=== PATIENT | female | born 1960 | race Caucasian/White ===

== ENCOUNTER 2024-05-02 13:45 | Emergency (ER) | payer OTHER, SELFPAY ==
[2024-05-02 13:47] VITALS: BP 142/87
--- NOTE | 2024-05-02 15:16 | ED.GENMED ---
History of Present Illness
General
Chief Complaint: Extremity Pain (non-traumatic)
Source: patient
Exam Limitations: none
Time Seen by Provider: 05/02/24 14:39
History of Present Illness
History of Present Illness:
63-year-old female who presents with pain in the left hand/fingers. she was recently casted by orthopedics for a wrist fracture. pt states that if feels too tight. no fevers.
Past History
Past History
ED Past Medical History: NIDDM and Psychiatric
ED Past Surgical History: Cholecystectomy and Orthopedic
Phy Exam
Physical Exam
Physical Exam:
CONSTITUTIONAL Vital signs reviewed, Patient alert and oriented to person, place and time. Well-appearing
HEAD atraumatic, normocephalic.
EYES eyelids normal to inspection, Extraocular muscles intact, Conjunctiva normal, Sclera normal.
NECK normal range of motion, Trachea midline, no jugular venous distention.
RESP no respiratory distress
UPPER EXTREMITY L arm short case. nl distal cap refill. nl gross sensation. no swelling. no cyanosis. Gross Range of motion normal of fingers, gross motor strength normal.
LOWER EXTREMITY Gross range of motion normal, Gross motor strength normal
NEURO Speech normal, No focal motor deficits include, Gala coma scale 15, Memory normal, Cranial Nerves intact to screening exam.
SKIN Skin warm, dry, and normal in color.
PSYCHIATRIC Patient oriented to person place and time, Normal affect.
Course
Vital Signs
Initial and Last Documented VS:
Initial Vital Signs
Temp Pulse Resp BP Pulse Ox
98.6 F 88 18 142/87 100
05/02/24 13:47 05/02/24 13:47 05/02/24 13:47 05/02/24 13:47 05/02/24 13:47
Last Documented Vital Signs
Temp Pulse Resp BP Pulse Ox
98.6 F 88 18 142/87 100
05/02/24 13:47 05/02/24 13:47 05/02/24 13:47 05/02/24 13:47 05/02/24 13:47
MDM/Problems Addressed
MDM/Problems Addressed:
tight cast, arm pain
*Pulse Oximetry
Patient hypoxic: no
*Critical Care Note
Total Time (30-74mins, 75-104mins- exclusive of procedures): Not Applicable
Data Reviewed
Source: patient
Further Testing Considered But Not Given:
considered xray but no new trauma
Patient Management
Escalation/DeEscalation of care consider admission/obs:
Normal distal perfusion. No redness. No fever to suggest infection. The cast was cut on both sides and valved. Candido wrap placed with pledget to keep the bowel movement. Recommended close outpatient orthopedic follow-up
ED Attending Note
-
Portions of this chart may have been created with voice recognition software.� Occasional wrong word or��sound alike� substitutions may have occurred due to the inherent limitations of voice recognition software.
Discharge Plan
Departure
Patient Disposition: Home (Routine Discharge)
Date of Disposition: 05/02/24
Time of Disposition: 15:21
Patient with high blood pressure during this ER visit?: Yes
Discharge Problem:
Arm pain
Instructions: BLOOD PRESSURE
Referrals:
Mary Jo Oh MD [Family Provider] -
Activity Restrictions/Additional Instructions:
Please see orthopedics next 3 days for follow-up and reevaluation and to readdress your cast. Return [facility] for numbness, tingling, worsening pain, fevers, discoloration or swelling of the hand or any other concerns
Interventions
Interventions:
*Risk Screen - Suicide Last Done: 05/02/24 13:47
*General Assessment Last Done: 05/02/24 13:47
*Neglect/Abuse Screening Last Done: 05/02/24 13:47
Discharge Date and Time
Print Language: [id number]
== END 2024-05-02 15:47 | disposition home or self-care (01) ==
LOC: EMR 13:45
PROVIDERS: EMERGENCY PHYSICIAN Emergency Medicine; FAMILY PHYSICIAN Family Medicine
DX: M79.642 Pain in left hand (principal); Z46.89 Encounter for fitting and adjustment of other specified devices; E11.9 Type 2 diabetes mellitus without complications
CPT/HCPCS: 99282